=== PATIENT | female | born 1970 | race Asian ===

== ENCOUNTER 2025-08-15 16:20 | Emergency (ER) | payer OTHER ==
[~2025-08-15] VITALS: Ht 165.1 cm; Wt 52.0 kg
[2025-08-15 16:29] VITALS: O2SAT 100
[2025-08-15] MEDS ORDERED: DEXAMETHASONE 0.5MG/5ML ORAL SYR PO ONE (20:30)
[2025-08-15] MEDS: DEXAMETHASONE 10 MG/ML VIAL PO NR (20:49)
[2025-08-15] MEDS: DIPHENHYDRAMINE 50MG/ML VIAL IM ONE (20:49)
[2025-08-15] MEDS ORDERED: DIPH25CA83 MT (22:49)
[2025-08-15] MEDS ORDERED: CETI10CA11 MT (22:49)
[2025-08-15 23:10] VITALS: BP 117/55; PULSE 73; RESP 14; TEMP 37.9; O2SAT 100
== END 2025-08-15 23:11 | disposition home or self-care (01) ==
LOC: ER 16:20
DX: J02.8 Acute pharyngitis due to other specified organisms (principal); B09 Unspecified viral infection characterized by skin and mucous membrane lesions; B97.89 Other viral agents as the cause of diseases classified elsewhere
CPT/HCPCS: 99283; 87430; 87070; 96372; J1100; J1200; J8540